=== PATIENT | female | born 1970 | race Caucasian/White ===

== ENCOUNTER → 2016-04-29 | Outpatient (CLI) | payer OTHER | LOC: RAD 08:32 | DX: M54.5 Low back pain (principal); Z53.9 Procedure and treatment not carried out, unspecified reason ==

== ENCOUNTER → 2016-05-15 | Outpatient (CLI) | payer OTHER | LOC: RAD 15:52 | DX: M54.5 Low back pain (principal); M47.816 Spondylosis without myelopathy or radiculopathy, lumbar region; M47.814 Spondylosis without myelopathy or radiculopathy, thoracic region; M25.559 Pain in unspecified hip | CPT/HCPCS: 72072; 72110; 73522 ==

== ENCOUNTER → 2016-05-27 | Outpatient (CLI) | payer OTHER | LOC: EMI 05-15 18:15 | DX: M54.5 Low back pain (principal); M12.88 Other specific arthropathies, not elsewhere classified, other specified site | CPT/HCPCS: 72148 ==

== ENCOUNTER → 2020-03-14 | Outpatient (CLI) | payer OTHER | LOC: RAD 13:40 | DX: M51.36 Other intervertebral disc degeneration, lumbar region (principal) | CPT/HCPCS: 72110 ==